=== PATIENT | female | born 1985 | race African-American/Black ===

== ENCOUNTER 2016-03-26 15:02 | Emergency (ER) | payer OTHER ==
[~2016-03-26] VITALS: Ht 152.4 cm; Wt 63.5 kg
[2016-03-26] MEDS ORDERED: Mylanta II UD 30ml ORAL ONE (15:30)
[2016-03-26] MEDS ORDERED: Lidocaine 2% Visc 15ml soln ORAL ONE (15:30)
--- NOTE | 2016-03-26 15:35 | Emergency Room Report ---
History of Present Illness General Chief Complaint: General Complaint Source: Patient Present Illness HPI 30-year-old female presents emergency department for chest tightness, shortness of breath and substernal discomfort x 2 days. Patient denies history of cardiac problems denies history of asthma she reports previous history of gastroesophageal reflux disease. Patient denies cardiac family history. Patient denies swelling of the lower extremities. Patient states difficulty breathing is worse when lying flat. Patient reports mild cough that started today. She denies nausea, vomiting, fevers or chills. Denies recent travel. She does not report unusual stress other than working a lot. She denies taking caffeine, [id number] supplements or drug use. Denies Palpitations, LOC, AMS, dizziness, Changes in Vision, Sensation, paresthesias, or a sudden severe headache. Allergies: Coded Allergies: No Known Allergies (Unverified , 03/26/16) Patient History Past Medical History: see triage record Past Surgical History: none Pertinent Family History: none Last Menstrual Period: 03/12/16 Now: No Immunizations: UTD Reviewed Nursing Documentation: PMH: Agreed, PSxH: Agreed Nursing Documentation-PMH Past Medical History: No History, Except For Hx Gastrointestinal Problems: Yes - GERD Review of Systems All Other Systems: negative except mentioned in HPI Physical Exam Vital Signs Date Time Temp Pulse Resp B/P Pulse Ox O2 Delivery O2 Flow Rate FiO2 03/26/16 15:16 98.8 74 14 117/79 100 Room Air Sp02 EP Interpretation: reviewed, normal General Appearance: no apparent distress, alert, GCS 15, non-toxic Head: normocephalic, atraumatic Eyes: bilateral eye PERRL, bilateral eye normal inspection ENT: hearing grossly normal, normal pharynx, no angioedema, normal voice, pharyngeal erythema Neck: full range of motion, supple/symm/no masses Respiratory: chest non-tender, lungs clear, normal breath sounds, no rhonchi, no respiratory distress, no retraction, no accessory muscle use, no wheezing, speaking full sentences Cardiovascular #1: regular rate, rhythm, no edema Gastrointestinal: normal bowel sounds, non tender, soft, no guarding, no rebound Rectal: deferred Musculoskeletal: back normal, gait/station normal, normal range of motion, non- tender, no calf tenderness Neurologic: alert, oriented x3, responsive, motor strength/tone normal, sensory intact, speech normal Psychiatric: judgement/insight normal, memory normal, mood/affect normal, no suicidal/homicidal ideation Skin: normal color, no rash, warm/dry, well hydrated Lymphatic: no adenopathy Medical Decision Making PA Attestation Dr. Chapman is my supervising Physician whom patient management has been discussed with. Diagnostic Impression: Primary Impression: GERD with esophagitis ER Course PT presents to the emergency department complaining of SOB Ddx considered but are not limited to MS, asthma, URI, anxiety reaction, PE. Vital signs: are WNL, pt. is afebrile H&PE are most consistent with GERD symptoms with esophagitis, pt. has a PERC score of zero, and no cardiac RF, pt. is NAD, non-tachycardic, non-tachypneic ORDERS: - EK BPM NSR no acute ST changes interpreted by Dr. Chapman. ED INTERVENTIONS: -GI cocktail --upon re-evaluation pt. states that her epigastric/sternal discomfort is beginning to subsided and has reduced significantly. PT EDUCATION: on proper follow up with her PCP or a GI Specialist if needed, and symptoms that wound indicate prompt return to the ED. DISCHARGE: At this time pt. is stable for d/c to home. Will provide printed patient care instructions, and any necessary prescriptions. Care plan and follow up instructions have been discussed with the patient prior to discharge. EKG Diagnostic Results EP Interpretation: interpreted by Dr. Chapman Rate: normal - 71 BPM Rhythm: NSR ST Segments: no acute changes ASA given to the pt in ED: No PA Scribe Text interpreted by Dr. Chapman Last Vital Signs Date Time Temp Pulse Resp B/P Pulse Ox O2 Delivery O2 Flow Rate FiO2 03/26/16 15:16 98.8 74 14 117/79 100 Room Air Disposition: HOME, SELF-CARE Condition: Stable Scripts Ranitidine Hcl* (ZANTAC*) 150 Mg Tablet 150 MG ORAL TWICE A DAY for 30 Days, #60 TAB Prov: Mary Kowalski 03/26/16 Patient Instructions: Gastroesophageal Reflux Disease, Adult Additional Instructions: Take medications as directed. Follow up with PCP or GI SPECIALIST in 3-5 days Return sooner to ED if new symptoms occur, or current symptoms become worse. Mary Kowalski Mar 26, 2016 15:35
[2016-03-26] MEDS ORDERED: ZANTAC150 MG ORAL (16:39)
[2016-03-26 17:07] VITALS: BP 121/82
[2016-03-26 17:08] VITALS: BP 121/82
--- NOTE | 2016-04-04 13:43 | Cardiology Report ---
APPROVED REPORT EKG Measurement Heart [id number] Normal sinus rhythm Nonspecific T wave abnormality Abnormal ECG
== END 2016-03-26 18:30 | disposition home or self-care (01) ==
LOC: EMR 18:15
DX: K21.0 Gastro-esophageal reflux disease with esophagitis (principal); R07.89 Other chest pain; R05 Cough
CPT/HCPCS: 93005; 99283